=== PATIENT | male | born 1985 | race Caucasian/White ===

== ENCOUNTER 2017-12-03 17:10 | Emergency (ER) | payer OTHER ==
[~2017-12-03] VITALS: Ht 182.9 cm; Wt 72.1 kg
[~2017-12-03 17:10] MED LIST: CLIN-79 PO; ONDA8TAB9 PO
[2017-12-03 17:30] VITALS: BP 141/98
[2017-12-03] MEDS ORDERED: LORA1TAB PO (18:17)
== END 2017-12-03 18:33 | disposition home or self-care (01) ==
LOC: ER 17:11
DX: F41.9 Anxiety disorder, unspecified (principal); Z88.0 Allergy status to penicillin; Z59.0 Homelessness; Z56.0 Unemployment, unspecified
CPT/HCPCS: 99284

== ENCOUNTER 2021-05-28 02:45 | Emergency (ER) | payer MEDICAID ==
[~2021-05-28] VITALS: Ht 182.9 cm; Wt 84.1 kg
[~2021-05-28 02:45] MED LIST changes: -CLIN-79 PO; +CLIN150C8 PO
[2021-05-28 04:42] VITALS: BP 135/95
== END 2021-05-28 04:45 | disposition home or self-care (01) ==
LOC: ER 02:46
DX: B34.9 Viral infection, unspecified (principal); Z20.822 Contact with and (suspected) exposure to COVID-19; F41.9 Anxiety disorder, unspecified; Z88.0 Allergy status to penicillin; Z56.0 Unemployment, unspecified
CPT/HCPCS: 87635; 99283; C9803

== ENCOUNTER 2021-05-31 18:31 | Emergency (ER) | payer MEDICAID ==
[~2021-05-31] VITALS: Ht 182.9 cm; Wt 84.1 kg
[2021-05-31 22:21] LABS: BASOPHILS % (AUTO) 0.4 % (0-1); EOSINOPHILS # (AUTO) 0.1 X10'3 (0-0.9); EOSINOPHILS % (AUTO) 1.6 % (0-6); HEMATOCRIT 41.9 % (42.0-52.0); LYMPHOCYTES # (AUTO) 1.3 X10'3 (1.1-4.8); MEAN CORPUSCULAR HEMOGLOBIN 29.5 PG (27.0-31.0); MEAN CORPUSCULAR HGB CONC 33.5 g/dL (33.0-36.5); MEAN PLATELET VOLUME 7.7 FL (7.4-10.4); MONOCYTES # (AUTO) 0.6 X10'3 (0-0.9); MONOCYTES % (AUTO) 10.7 % (2-12); NEUTROPHILS # (AUTO) 3.3 X10'3 (1.8-7.7); NEUTROPHILS % (AUTO) 63.3 % (42-75); PLATELET COUNT 250 X10'3 (140-440); RED BLOOD COUNT 4.76 X10'6 (4.70-6.10); RED CELL DISTRIBUTION WIDTH 13.1 % (11.5-14.5); WHITE BLOOD COUNT 5.2 X10'3 (4.5-11.0)
[2021-05-31 22:35] LABS: ALANINE AMINOTRANSFERASE 52 U/L (12-78); ALBUMIN 4.1 G/DL (3.4-5.0); ALBUMIN/GLOBULIN RATIO 1.2 (1.1-1.5); ALKALINE PHOSPHATASE 57 IU/L (46-116); ANION GAP 7 (8-16); ASPARTATE AMINO TRANSFERASE 49 U/L (10-37); BILIRUBIN,TOTAL 0.6 MG/DL (0.1-1.0); BLOOD UREA NITROGEN 16 MG/DL (7-18); BUN/CREATININE RATIO 15.2 (5.4-32.0); CALCIUM 9.2 MG/DL (8.5-10.1); CHLORIDE 108 MMOL/L (99-107); CREATININE 1.05 MG/DL (0.60-1.10); GLUCOSE 104 MG/DL (70-104); SODIUM 144 MMOL/L (135-145); TOTAL CARBON DIOXIDE 28.6 MMOL/L (24-32); TOTAL PROTEIN 7.5 G/DL (6.4-8.2); eGFR 80 ML/MIN
[2021-05-31 22:36] LABS: ETHANOL < 0.010 GM/DL (0.0-0.010)
[2021-06-01 00:06] LABS: URINE AMPHETAMINE SCREEN POSITIVE (Neg); URINE BARBITUATE SCREEN NEGATIVE (Neg); URINE BENZODIAZEPINES SCREEN NEGATIVE (Neg); URINE CANNABINOID SCREEN POSITIVE (Neg); URINE COCAINE SCREEN NEGATIVE (Neg); URINE METHADONE SCREEN NEGATIVE (Neg); URINE OPIATE SCREEN NEGATIVE (Neg); URINE PHENCYCLIDINE SCREEN NEGATIVE (Neg)
--- NOTE | 2021-06-01 01:15 | NUR ---
Packet faxed to [facility]
[2021-06-01] MEDS ORDERED: NO HOME MEDS (05:59)
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
[2021-06-01] MEDS ORDERED: diphenhydrAMINE 50 mg/ml inj IM ONE (09:05)
[2021-06-01] MEDS ORDERED: LORazepam 2 mg/ml vial IM ONE (09:05)
[2021-06-01] MEDS ORDERED: OLANZapine **IM** 10 mg inj. IM ONE (09:05)
--- NOTE | 2021-06-01 09:45 | NUR ---
PT YELLING AND THRASHING IN RESTRAINTS. TOMENEERING CALLED TO PLACE WEIGHTS AT BOTTOM OF BED TO PREVENT PT FROM BREAKING BED. 0955 REASSESSED PT AND HE APPEARS TO BE SLEEPING, EQUAL RESPIRATIONS, NO DISTRESS NOTED.
--- NOTE | 2021-06-01 13:03 | NUR ---
pt taken out of restraints, able to follow commands, cleaned wounds to Right wrist and left forarm, bactracin and simple dressing applied.
--- NOTE | 2021-06-01 14:33 | NUR ---
pt laying on right side, no distress noted.
--- NOTE | 2021-06-01 16:19 | NUR ---
PT SLEEPING IN BED SUPINE NO DISTRESS NOTED. EQUAL RESPIRATIONS.
--- NOTE | 2021-06-02 06:30 | NUR ---
PATIENT UP TO THE BATHROOM,SUPERVISED BY PRIMARY RN.
[2021-06-02] MEDS ORDERED: LORazepam 2 mg/ml vial IM ONE (06:50)
[2021-06-02] MEDS ORDERED: diphenhydrAMINE 50 mg/ml inj IM ONE (06:50)
[2021-06-02] MEDS ORDERED: haloperidol lactate 5mg/ml inj IM ONE (06:50)
--- NOTE | 2021-06-02 09:13 | NUR ---
UNABLE TO OBTAIN ASSESSMENTS,PT ASLEEP.IN VIEW OF RN.
--- NOTE | 2021-06-02 13:20 | NUR ---
sitting on bed eating lunch
[2021-06-02 13:42] VITALS: BP 118/55
--- NOTE | 2021-06-02 14:16 | NUR ---
[facility] OFFICE CALLED SPOKE TO [place],PATIENT ACCEPTED AT [facility], NO ETA AT THIS TIME YET,WILL CALL RN FOR ETA WHEN BED IS AVAILABLE. RN TO RN REPORT [phone]
--- NOTE | 2021-06-02 14:32 | NUR ---
VIRGINIE FROM [facility] OFFICE CALLED AND STATES PATIENT TRANSPORTATION GOING TO [facility] IS BETWEEN [phone].
--- NOTE | 2021-06-02 14:48 | NUR ---
ATTEMPTED TO CALL REPORT TO [facility], RN UNAVAILABLE TO RECEIVE REPORT AT THIS TIME MICHELLE TO SHIFT CHANGE.WILL ATTEMPT AGAIN.
[2021-06-02] MEDS ORDERED: LORazepam 1 MG tablet PO ONE (15:30)
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
--- NOTE | 2021-06-02 15:57 | NUR ---
TRANSPORTATION HERE TO TAKE PATIENT TO [facility].
== END 2021-06-02 16:00 ==
LOC: ER 18:32
DX: R45.851 Suicidal ideations (principal); Z20.822 Contact with and (suspected) exposure to COVID-19; F41.9 Anxiety disorder, unspecified; F32.9 Major depressive disorder, single episode, unspecified; F15.90 Other stimulant use, unspecified, uncomplicated; Z72.89 Other problems related to lifestyle; Z56.0 Unemployment, unspecified; Z59.00 Homelessness unspecified; Z88.0 Allergy status to penicillin; Z79.2 Long term (current) use of antibiotics; Z79.899 Other long term (current) drug therapy
CPT/HCPCS: 36415; 80053; 80305; 80320; 85025; 87635; 96372; 99285; C9803; J1200; J1630; J2060; J3490